=== PATIENT | male | born 1945 | race Caucasian/White ===

== ENCOUNTER 2018-11-30 08:00 | Outpatient (CLI) | payer MEDICARE ==
[~2018-11-30] VITALS: Ht 188 cm; Wt 95.5 kg
[2018-11-30] MEDS ORDERED: BECL10.62 INH (14:32)
[2018-11-30] MEDS ORDERED: ASPI-496 PO (14:32)
[2018-11-30] MEDS ORDERED: PANT40TA3 PO (14:32)
[2018-11-30] MEDS ORDERED: IRBE300T16 PO (14:32)
[2018-11-30] MEDS ORDERED: CHOL200074 PO (14:32)
== END 2018-11-30 23:59 | disposition home or self-care (01) ==
LOC: STAR 08:00 → EDSTATUS 12-02 08:30
PROVIDERS: ATTEND Internal Medicine
DX: Z01.818 Encounter for other preprocedural examination (principal); K83.1 Obstruction of bile duct
CPT/HCPCS: 93005